=== PATIENT | female | born 1940 ===

== ENCOUNTER 2021-10-22 11:30 | Inpatient (IN) | payer OTHER ==
[~2021-10-22] VITALS: Ht 154.9 cm; Wt 65.8 kg
[2021-10-22] MEDS ORDERED: JANUMET 50-5001 EACH PO (12:31)
[2021-10-22] MEDS ORDERED: ZIAC 10/6.25 MG1 TAB PO (12:31)
[2021-10-22] MEDS ORDERED: CLONAZEPAM0.5 MG PO (12:32)
[2021-10-22] MEDS ORDERED: AVAPRO150 MG PO (12:32)
[2021-10-27] MEDS ORDERED: ROSUVASTATIN CA10 MG (08:43)
[2021-10-27] MEDS ORDERED: OPTIVE EYE DROP15 ML (08:43)
[2021-10-28] MEDS ORDERED: XARELTO10 MG PO (13:06)
[2021-10-28] MEDS ORDERED: ACETAMINOPHEN-1 EAC2 PO (13:06)
[2021-10-28] MEDS ORDERED: DUI500 PO (13:06)
== END 2021-10-28 14:08 | disposition home or self-care (01) | DRG 470 ==
LOC: O/R 10-26 06:12 → SURG 10-26 06:12 → SURH 10-26 11:30 → SURG 10-28 14:08
PROVIDERS: ADMIT Orthopaedic Surgery; ATTEND Orthopaedic Surgery
PROC: 0SRC0J9 Replacement of Right Knee Joint with Synthetic Substitute, Cemented, Open Approach (ICD-10-PCS; principal; 2021-10-26 20:00)
DX: M17.11 Unilateral primary osteoarthritis, right knee (principal); D62 Acute posthemorrhagic anemia; M22.11 Recurrent subluxation of patella, right knee; I10 Essential (primary) hypertension; E11.9 Type 2 diabetes mellitus without complications; Z20.822 Contact with and (suspected) exposure to COVID-19